=== PATIENT | female | born 1985 | race Caucasian/White ===

== ENCOUNTER → 2017-12-24 15:27 | Outpatient (CLI) | payer BC, SELFPAY ==
[2017-12-24 18:34] LABS: Thyroid Stim Hormone (TSH) 2.07 uIU/mL (0.358-3.74)
[2017-12-26 13:25] LABS: Hep B Surface Antibodies Reactive (.)
== END ==
PROVIDERS: Family Provider Family Medicine; PCP Family Medicine; Visit Provider Family Medicine
DX: R00.2 Palpitations (principal); Z92.29 Personal history of other drug therapy
CPT/HCPCS: 36415; 84439; 84443; 86706

== ENCOUNTER → 2018-01-31 12:39 | Outpatient (CLI) | payer BC, SELFPAY ==
--- NOTE | 2018-01-31 12:42 | ECHOD_ITS ---
Reason For Study: Palpitations Procedure This was a 2D Doppler, Color Flow transthoracic echocardiogram. Exam performed in department. Left Ventricle Normal size and thickness. The estimated ejection fraction is 65 %. Normal diastology for age. No regional wall motion abnormalities noted. Right Ventricle Normal size and thickness. Normal systolic function. Atria Normal left atrium. Normal right atrium. Normal atrial septum. Mitral Valve The mitral valve is structurally normal. No prolapse or stenosis seen. Tricuspid Valve Normal tricuspid valve. Trivial tricuspid valve insufficiency. Right ventricular systolic pressure estimated to be 24 mmHg. Aortic Valve Normal aortic valve. Trisinus/trileaflet aortic valve. Pulmonic Valve Normal pulmonic valve. Great Vessels Normal aortic root. Normal arch. Normal inferior vena cava. Inferior vena cava collapse with sniff. Pericardium/Pleural No pericardial effusion. MMode/2D Measurements & Calculations LVIDd: 5.1 cm IVSd: 0.84 cm Ao root diam: 2.9 cm LVIDs: 3.5 cm LVPWd: 0.82 cm LA dimension: 3.9 cm RVDd: 3.7 cm FS: 31.6 % LAV(MOD-bp): 48.1 ml LA A4 area: 16.0 cm2 RA A4 area: 12.3 cm2 LAV(MOD-bp) Indexed: 23.1 ml/m2 LAV(MOD-sp2): 53.8 ml LAV(MOD-sp4): 40.4 ml Doppler Measurements & Calculations MV E max mahesh: 88.8 cm/sec Lat Peak E' Mahesh: 10.9 cm/sec Med Peak E' Mahesh: 7.2 cm/sec MV A max mahesh: 58.2 cm/sec E/E' lat: 8.1 E/E' med: 12.3 MV E/A: 1.5 Ao V2 max: 126.1 cm/sec LV V1 max: 109.4 cm/sec PA V2 max: 92.6 cm/sec Ao max P.4 mmHg LV V1 max P.8 mmHg Ao V2 mean: 93.3 cm/sec Ao mean P.8 mmHg Ao V2 VTI: 32.3 cm TR max mahesh: 219.4 cm/sec TR max P.3 mmHg Interpretation Summary The estimated ejection fraction is 65 %. Normal diastology for age. Trivial tricuspid valve insufficiency. Right ventricular systolic pressure estimated to be 24 mmHg. There is no comparison study available. Ordering Physician: Carroll French Referring Physician: Javier Taylor MD Performed By: Jeanine Anderson RDCS, RVT
== END ==
PROVIDERS: Family Provider Family Medicine; PCP Family Medicine; Visit Provider Internal Medicine Cardiovascular Disease
DX: R00.2 Palpitations (principal); E66.9 Obesity, unspecified
CPT/HCPCS: 93306

== ENCOUNTER → 2018-03-24 17:39 | Outpatient (CLI) | payer BC, SELFPAY | PROVIDERS: Family Provider Family Medicine; Visit Provider Family Medicine | DX: L02.91 Cutaneous abscess, unspecified (principal) | CPT/HCPCS: 87070; 87205 ==

== ENCOUNTER → 2020-10-05 11:30 | Outpatient (REF) | payer BC, SELFPAY | LOC: LABSPEC 11:30 | PROVIDERS: PCP Family Medicine; Visit Provider Family Medicine | DX: Z03.818 Encounter for observation for suspected exposure to other biological agents ruled out (principal) | CPT/HCPCS: 87635; U0003 ==

== ENCOUNTER 2022-02-08 08:33 | Day surgery (SDC) | payer BC, SELFPAY ==
--- NOTE | 2022-01-30 16:38 | PCM.HP.BLA ---
History and Physical Date of Admission: 02/08/22 Pre-Op History and Physical ? HPI: The patient is a 36 year old female presenting for AUB, heavy menses. Pt saw EMERGENCY SERVICES DISPATCHER previously who worked her up- had ultrasound which shows likely EM polyp. Pt reports does not currently use BC and interested in IUD for heavy menses and contraception. ? pre-operative visit. She is scheduled for Hysteroscopy D&C and Polypectomy with IUD insertion Mirena , for AUB, Endometrial polyp, contraception mgmt on 02/08/22. Procedure discussed along with risks, benefits and complications. Other alternatives discussed for management. Consent form signed? Yes. ? ? PAST MEDICAL HISTORY PAST MEDICAL HISTORY Diagnosis Date ? NEGATIVE MEDICAL HISTORY ? ? ? PAST SURGICAL HISTORY PAST SURGICAL HISTORY Procedure Laterality Date ? TONSILLECTOMY & ADENOIDECTOMY <AGE 13 ? CURRENT MEDICATIONS No current outpatient medications on file. ? No current facility-administered medications for this visit. ? ? ALLERGIES: Patient has no known allergies. ? PERSONAL HISTORY: SOCIAL HISTORY Social History ? Tobacco Use ? Smoking status: Current Every Day Smoker ? ? Packs/day: 0.50 ? ? Years: 18.00 ? ? Pack years: 9.00 ? ? Types: Cigarettes ? Smokeless tobacco: Never Used Vaping Use ? Vaping Use: Never used Substance Use Topics ? Alcohol use: Yes ? Drug use: Never ? FAMILY HISTORY: FAMILY HISTORY FAMILY HISTORY Problem Relation Age of Onset ? Breast Cancer Mother 47 ? Alcohol abuse Father ? ? Breast Cancer Maternal Grandmother ? ? ? REVIEW OF SYMPTOMS: negative except as noted above PHYSICAL EXAMINATION: ? VITALS: Blood pressure 144/86, weight 245 lb (111.1 kg), last menstrual period 01/21/2022. ? GENERAL: The patient is well nourished, well hydrated in no acute distress. , The patient is oriented to time, place, and person. NECK: full range of motion LUNGS: Clear to auscultation bilaterally. no wheezes, rhonchi or rales HEART: Regular rate and rhythm, Normal heart sounds and No murmurs or gallops GENITALIA: deferred ? IMPRESSION: 36yo with AUB, Endometrial polyp. Contraception mgmt ? PLAN: Hysteroscopy, D&C, polypectomy, Mirena IUD insertion ? Pt has been counseled on risks/benefits and alternatives of surgery including but not limited to anesthesia, bleeding, infection, uterine perforation with subsequent injury to pelvic structures including bowel, bladder, ureters and vessels. Pt wishes to proceed with surgery at this time. ? Mirena IUD to come from Office ? COVID VACCINATED- no need for testing pre op ? PRE AND POST op instructions reviewed. ? I have reviewed and updated past medical and surgical history, medications and allergies Vernell Leyva MD ?4:38 PM
--- NOTE | 2022-02-08 | EMB_PTH ---
PATIENT: GARRY FLORES LOC: [facility] [place] U#:[id number] AGE/SX: 36/F ROOM: RE02/08/[address]: Dr. Vernell Beth, MDDOB: 1985 BED: DIS: 02/08/2022 SPEC #: [id number] RECD: 02/08/22 10:43 STATUS: HENRIK PARDO #: [id number] RELL: 02/08/22 00:[address]: Vernell Beth DEPT: SURGICAL PATHOLOGY RECD BY: Sadia Vazquez ENTERED: 02/08/22 11:34 SP TYPE: ENDOM BX/C HOPE DR: Dr. Javier Taylor MD Tissues: Endometrium, NOS Procedures: Surgery Specimen Level IV HEADER OPERATION: Hysteroscopy, dilation and curettage, endometrial polypectomy PRE-OP DIAGNOSIS: Abnormal uterine bleeding, endometrial polyp, contraception management TISSUE SUBMITTED: Endometrial polyp and endometrial curettings MICROSCOPIC DIAGNOSIS Endometrial polyp and endometrial curettings: Secretory endometrium. Fragments of myometrium. MARION:niurka 02/09/2022 MICROSCOPIC DESCRIPTION Slides are reviewed. GROSS DESCRIPTION Received in fixative is one container labeled with the patient's name and designated endometrial polyp and endometrial curettings. The specimen consists of multiple irregular fragments of coello soft tissue mixed with hemorrhagic soft tissue that in aggregate measure 5 x 3 x 0.3 cm. The specimen is totally submitted in two cassettes. / MARION:niurka 02/08/2022 TC:4 CPT: 06268
[2022-02-08 09:06] VITALS: BP 150/79; PULSE 97; RESP 18; TEMP 35.7; O2SAT 98; BMI 41.0
--- NOTE | 2022-02-08 09:09 | PCM.DC ---
Discharge Instructions Diet Discharge Diet: No restrictions Activity May resume sexual activity in: 1 week Dressing / Incision Call your doctor if you observe: Fever of 101 or Higher, Inability to urinate, Using more than 1 pad per hour and Uncontrolled pain Follow Up Care Please Follow Up With: Vernell Beth MD When: 1-2 weeks post OP if you need an appointment please call [phone] Test Results: Test results from this visit will be discussed in further detail at your follow-up appointment, if applicable. Discharge Plan Admission Attending Provider: Vernell Beth Primary Care Provider: Javier Taylor Discharge Orders/Prescriptions Prescriptions: No Action melatonin 3 mg Tablet 3 mg PO QHS RF: 0 cholecalciferol (vitamin D3) [Vitamin D3] 25 mcg (1,000 unit) Tablet 25 mcg PO DAILY RF: 0
--- NOTE | 2022-02-08 09:09 | PCM.OPRPT ---
Problems Associated Problem List Diagnoses (1) Abnormal uterine bleeding (AUB): (2) Endometrial polyp: (3) Contraception management: Report of Operation Date of Procedure: 02/08/22 Pre-Operative Diagnosis: aub, endometrial polyp, contraceptive mgmt Post-Operative Diagnosis: same Surgery/Procedure Performed:: Hysteroscopy, D&C, Polypectomy, Mirena IUD Insertion Description of Surgical Findings:: Endometrial polyp noted- removed with symphion resection device. IUD placed w/o difficulty. Surgeon: Vernell Beth Type of Anesthesia: MAC Specimen's removed: Endometrial curettings, endometrial polyp Estimated Blood Loss (mL): 5 Fluids Replaced: 700 Description of Procedure: Informed consent was obtained the patient was taken the operating room she was placed in supine position. She was given anesthesia. She was then placed in the [facility] where she was prepped and draped in the normal sterile fashion. At this time the weighted speculum was placed in the posterior fornix of vagina. Single-tooth tenaculum was used to gently grasp the anterior lip the cervix. At this time the uterine cavity was sounded to approximately 9cm. Gentle dilatation was performed once adequate dilatation of the cervix was achieved the hysteroscope using normal saline as a distention medium was placed. Endometrial polyp noted with thick endometrial tissue.. Symphion resecting device used to obtain endometrial curettings and to perform polypectomy. Tissue will be sent to pathology for evaluation. MIRENA IUD opened and inserted without difficulty. IUD strings cut to 2.5cm from cervical OS. Tenaculum removed. Good hemostasis. Instrument, lap count correct x 2. Vaginal Sweep was negative. fluid deficit 850cc Grafts/Implants Used: Mirena IUD Procedure Start Time: 10:04 Procedure Stop Time: 10:15 Complications none Admit VTE Documentation VTE Present on Admission: Yes VTE Mechan Device Prophylaxis: SCD's VTE Pharm Prophylaxis ordered?: No Reason prophylaxis not ordered:: Procedure Not Indicated
[2022-02-08] MEDS: Lactated Ringers 1,000 ML 15 ML IV (09:11)
[2022-02-08 09:27] LABS: Hemoglobin 12.5 g/dL (12.0-15.0); Mean Corp Hgb Conc 32.9 g/dL (32-36); Mean Corpuscular Hgb 29.3 pg (27.0-32.0); Platelet Count 278 K/mm3 (150-450); RBC Distribution Width CV 14.1 % (11.6-14.6); RBC Distribution Width SD 44.6 fl (35.1-43.9); Red Blood Count 4.27 M/mm3 (4.2-5.4); White Blood Count 12.1 K/mm3 (4.4-11.0)
[2022-02-08 09:44] LABS: Internal QC Validated? YES +Cl - CLEAR BKGD; Pregnancy, Serum, hCG Quali. NEGATIVE Negative
[2022-02-08 10:25] VITALS: BP 121/70; BP 150/79; PULSE 88; RESP 16; TEMP 36.1; O2SAT 94
[2022-02-08 10:30] VITALS: BP 122/80; BP 150/79; PULSE 79; RESP 16; O2SAT 94
[2022-02-08 10:35] VITALS: BP 122/86; BP 150/79; PULSE 75; RESP 16; O2SAT 97
[2022-02-08 10:40] VITALS: BP 121/73; BP 150/79; PULSE 69; RESP 16; TEMP 36.2; O2SAT 98
[2022-02-08 11:01] VITALS: BP 150/79
== END 2022-02-08 23:59 | disposition home or self-care (01) ==
LOC: SDC 08:51 → AC 08:52
PROVIDERS: Anesthesiology; PCP Family Medicine; Visit Provider Obstetrics & Gynecology
PROC: 0UB98ZZ Excision of Uterus, Via Natural or Artificial Opening Endoscopic (ICD-10-PCS; CPT 58558; principal; 2022-02-08 09:55)
DX: N84.0 Polyp of corpus uteri (principal); Z68.41 Body mass index [BMI] 40.0-44.9, adult; F17.210 Nicotine dependence, cigarettes, uncomplicated; Z30.430 Encounter for insertion of intrauterine contraceptive device; E66.9 Obesity, unspecified; N93.9 Abnormal uterine and vaginal bleeding, unspecified
CPT/HCPCS: 58558; 58300; 00952; 84703; 85027; 88305; J7120; J2405

== ENCOUNTER → 2022-12-24 | Outpatient (CLI) | payer BC, SELFPAY ==
--- NOTE | 2022-12-24 08:51 | RAD_ITS ---
STUDY: X-RAY - RIGHT FOOT CLINICAL: Female, 37 years old. pain TECHNIQUE: 3 view(s) of the foot. COMPARISON: None. FINDINGS: Normal talus and tarsal bones. Calcaneal spurs Normal visualized subtalar, talonavicular, calcaneocuboid, tarsal and tarsometatarsal articulations. Normal metatarsi. Normal metatarsophalangeal joint of the great toe. Normal tibial and fibular sesamoid bones. Normal interphalangeal joint of the great toe. Normal phalanges of the great toe. Normal second through fifth metatarsophalangeal joints. Normal interphalangeal joints and phalanges of the lesser toes. The soft tissue structures are unremarkable. RAD/Foot min 3 Views IMPRESSION: Calcaneal spurs, no demonstrated fracture or suspicious osseous lesion Electronically Signed: Chandan Saldaña MD at 16:48 EST ,
== END | disposition home or self-care (01) ==
LOC: MTRAD 08:45
PROVIDERS: PCP Family Medicine; Referring Provider Nurse Practitioner Family; Visit Provider Nurse Practitioner Family
DX: M79.671 Pain in right foot (principal)
CPT/HCPCS: 73630

== ENCOUNTER → 2023-07-11 | Outpatient (CLI) | payer OTHER, SELFPAY ==
--- NOTE | 2023-07-11 14:01 | RAD_ITS ---
STUDY: X-RAY - CERVICAL SPINE REASON FOR EXAM: Female, 37 years old. C3-4 L sided neck pain for one month period TECHNIQUE: 5 view(s) of the cervical spine were obtained. COMPARISON: None FINDINGS: Normal anterior atlantoaxial articulation. Normal odontoid process. Normal cervical lordosis. Normal vertebral bodies and endplates. Normal disc space heights. Normal visualized intervertebral neuroforamina. The soft tissue structures are normal. RAD/Cerv Spine 4 or 5 Views IMPRESSION: Normal x-ray examination of the visualized cervical spine. Electronically Signed: Williams Canales MD at 10:59 EDT ,
== END | disposition home or self-care (01) ==
PROVIDERS: PCP Family Medicine; Referring Provider Family Medicine; Visit Provider Family Medicine
DX: M54.2 Cervicalgia (principal)
CPT/HCPCS: 72050

== ENCOUNTER 2023-12-25 06:58 | Emergency (ER) | payer OTHER, SELFPAY ==
[2023-12-25 07:00] VITALS: BP 162/101; PULSE 80; RESP 16; TEMP 36.7; O2SAT 97; BMI 44.1
--- NOTE | 2023-12-25 07:12 | EX.ED.DYSGE1 ---
HPI History of Present Illness Chief Complaint: Back Informant: patient Narrative Narrative: Patient presents with pain in her back that is starting to wrap around to the front of the abdomen. Patient states that about 2 AM this started. It was in the medial aspect of both scapula. She said it was clearly on both sides. It radiated a little bit down her back but is now coming around the lower portion of the rib cage to the front. She states it comes in waves. It is not bad now. When the pain is bad she got nauseated once and vomited once. But she is not at all short of breath she is not syncopal or near syncopal. She is not coughing. Moving twisting breathing does not bother it. Nothing seems to make it better or worse. She does feel little bit more pain in the right flank area but not notably more there. No prior abdominal surgeries. She has a history of borderline hypertension but is never been placed on meds for this. No family history of heart disease. She does have some obesity and vapes but no cigarettes. No recent travel surgery or immobilization personal family history of DVT or PE. No history of early gallbladder problems run in the family. [facility] Medical History Alcohol use Anxiety Back pain Former smoker Gastric reflux GERD (gastroesophageal reflux disease) High cholesterol History of echocardiogram History of stress test HLD (hyperlipidemia) HTN (hypertension) Migraines Nicotine dependence in remission Obesity Smoker Wears glasses Home Medications cholecalciferol (vitamin D3) 25 mcg (1,000 unit) tablet (Vitamin D3) 25 mcg PO DAILY 02/01/22 [History Last Taken Unknown] melatonin 3 mg tablet 3 mg PO QHS 02/01/22 [History Last Taken Unknown] Allergy/AdvReac Type Severity Reaction Status Date / Time No Known Allergies Allergy Verified 02/08/22 09:04 Family History Father Hypertension 54 etoh abuse Mother Breast cancer Surgical History cyst excision from breast H/O wisdom tooth extraction History of tonsillectomy and adenoidectomy Social History Smoking Status: Current every day smoker tobacco type: e-cigarettes alcohol intake: current alcohol intake frequency: a few times a month Alcohol type: beer caffeine: Yes Type: coffee Number of servings: 1 ROS ROS ED ROS Narrative A complete review of systems was performed and is negative except as documented in the history of present illness. Some specific details below. Constitutional: No recent fevers or chills. Has not felt ill recently. EYE: No visual complaints or pain. ENT: No difficulty swallowing. No swelling. No pain. There is a history of GERD but she is not having those feelings at this time. CV: No anterior chest pain or palpitations. Respiratory: No dyspnea. No hemoptysis. No difficulty taking breaths. GI: Nauseated and vomited once but not nauseated now. Pain is coming around to the front of her abdomen. Maybe a little bit more on the right than the left. : No frequency dysuria or hematuria. No history of kidney stones. Musculoskeletal: No recent trauma. No pains. No different activity pulling pushing or anything that she can think of to have initiated this pain. Skin: No rash. Nondiaphoretic. Neuro: No weakness or numbness. Endocrine: No polyuria or polydipsia. EXAM Physical Exam Narrative Exam Narrative: CONSTITUTIONAL: Patient is nontoxic in appearance. The patient looks comfortable. She is actually laughing when I walk in the room but the pain is better now. HEENT: No notable trauma. Mucous membranes moist. EYES: No conjunctival injection. No proptosis. CARDIOVASCULAR: Regular rate. Rate is about 75?85 on the monitor. No ectopy. Regular rhythm. No notable murmur. No JVD. Tones are not muffled. Peripheral pulses are normal x 4. RESPIRATORY: No respiratory distress. Breathing is unlabored. No wheezes. No rhonchi. No rales. No pain with a deep breath. Saturations normal at 97-98% on room air on the monitor showing no hypoxia. GASTROINTESTINAL: Not distended. Bowel sounds are normal. No tenderness. No guarding. No rebound. No palpable mass. No bruit. GENITOURINARY: No tenderness over the bladder. She did have mild right CVA tenderness. MUSCULOSKELETAL: Atraumatic. No peripheral edema. No cord. No tenderness along the deep venous system. No asymmetry. Her back shows no notable tenderness except as I get down lower on the right. No skin changes. NEUROLOGICAL: Patient is alert and appropriate. No focal deficit noted. SKIN: No noted rashes. No diaphoresis. PSYCHIATRIC: Patient is calm. Mood is appropriate. Const Vital Signs: 12/25/23 07:00 Temperature 98.0 F Temperature Source Temporal Pulse Rate 80 Respiratory Rate 16 Blood Pressure 162/101 H Blood Pressure Mean 121 Pulse Ox 97 Oxygen Delivery Method Room Air MDM MDM MDM Narrative Medical decision making narrative: Patient CBC shows no marked abnormalities. Patient's electrolytes show minimally low sodium at 135 but otherwise normal. Glucose is slightly up at 122 and this can be rechecked. Liver function test shows no marked abnormalities. Urinalysis is not a clean-catch but no other marked findings. Lipase is negative. Urine is negative. I rechecked the patient. She still having some pains off and on. But looks comfortable. Pains are still on the back and wrapping around. This a very atypical pain. I have no explanation for her symptoms of pain with nausea and vomiting. Her exam is unremarkable. She has excellent peripheral pulses. She is not hypoxic or pain with a deep breath. She is PERC negative. But with her atypical migrating pain we did do a CTA. My independent interpretation the patient's CTA of the chest abdomen pelvis shows no acute process. No pulmonary abnormality. Abdominal structures also look normal. No hydro. Final reading is pending. Final reading did not she any notable abnormality. Slight variation in diameter of the aorta but not technically aneurysm. There is some stones in the kidney but not ureter. Patient is feeling well. We will get her Toradol. Recommend Tylenol Motrin. Abdomen is still benign. Lab Data Attestation: I reviewed the patient's lab results. Labs: Laboratory Results - last 24 hr 12/25/23 12/25/23 07:25 07:30 WBC 9.5 RBC 4.66 Hgb 14.6 Hct 42.1 MCV 90.3 MCH 31.3 MCHC 34.7 RDW Std Deviation 38.5 RDW Coeff of Nickolas 11.8 Plt Count 282 MPV 9.9 Immature Gran % (Auto) 0.700 Neut % (Auto) 68.3 Lymph % (Auto) 19.5 Gallia % (Auto) 9.9 Eos % (Auto) 1.3 Baso % (Auto) 0.3 Absolute Neuts (auto) 6.5 Absolute Lymphs (auto) 1.85 Nucleated RBC % 0 Sodium 135 L Potassium 4.0 Chloride 105 Carbon Dioxide 27.0 Anion Gap 3 L BUN 15 Creatinine 0.72 Estim Creat Clear Calc 138.96 Est GFR (MDRD) Af Amer 117 Est GFR (MDRD) Non-Af 97 BUN/Creatinine Ratio 20.8 H Glucose 122 H Lactic Acid 1.1 Calcium 8.8 Total Bilirubin 1.00 AST 23 ALT 57 H Alkaline Phosphatase 65 Troponin I High Sens 3 Total Protein 6.9 Albumin 3.6 Globulin 3.3 Albumin/Globulin Ratio 1.1 Lipase 25 Serum , Qual NEGATIVE Urine Color Yellow Urine Clarity Sl. Cloudy Urine pH 6.5 Ur Specific [place] 1.015 Urine Protein 30 H Urine Glucose (UA) Normal Urine Ketones 5 H Urine Occult Blood 10 H Urine Nitrite Negative Urine Bilirubin Negative Urine Urobilinogen Normal Ur Leukocyte Esterase 25 H Urine RBC 0 SEEN Urine WBC 0-5 SEEN Ur Squamous Epith Cells 5-10 SEEN Amorphous Sediment 1+ Urine Bacteria 0 SEEN Urine Mucus 0 SEEN Radiography Diagnostic Testing: Clinical Impression(s) from Imaging Studies Chest/Abdomen/Pelvis CTA 12/25/23 08:30 IMPRESSION: 1. No CTA evidence of thoracic aortic aneurysm, abdominal aortic aneurysm or dissection. 2. No CTA evidence of pulmonary thromboemboli. 3. No acute cardiopulmonary pathology. 4. Moderate diffuse hepatic steatosis and hepatomegaly. 5. Abnormal intramural edema of the gastric antral wall causing luminal narrowing of the gastric antrum and the pylorus. Recommend EGD for further evaluation. 6. 2.5 cm nonenhancing hypodense cyst in the left posterior renal parenchyma is simple cyst. No follow-up is necessary. 7. 5 mm nonobstructing stone abutting the posterior wall of the left renal cyst. Electronically Signed: Jaret Hernandez MD at 9:55 EST , EKG Initial EKG: Comments: My independent interpretation of the patient's EKG shows normal sinus rhythm with slight sinus arrhythmia. Overall rate is normal at 72. Minimal nonspecific changes but no sign of acute infarct or ischemia. CA interval, QRS duration and QTc are normal. I was able to find a prior EKG from 18 August 2013. Although the copy is not perfect the EKGs are similar. Discharge Plan Triage Chief Complaint: Back ED Provider: Roman Salguero Dx/Rx/DC Orders Clinical Impression: Posterior chest pain Instructions: ED Back Spasm, No Trauma Prescriptions: No Action melatonin 3 mg Tablet 3 mg PO QHS cholecalciferol (vitamin D3) [Vitamin D3] 25 mcg (1,000 unit) Tablet 25 mcg PO DAILY Primary Care Provider: Javier Taylor Referrals: Javier Taylor MD [Primary Care Provider] - 1-2 Days if not improving Activity Restrictions/Additional Instructions: May use Tylenol or Motrin or Aleve for discomfort. Recommend ice versus heat. Disposition Disposition: Home, Self Care
--- OUTSIDE RECORDS SUMMARY | 2023-12-25 07:21 | XMS RPT_ITS | CCD ---
Author Name Unknown Address [address] [place] [address] Organization [facility] Care Team Providers Care Aerobics Instructor Name Role Phone Unavailable Primary Care Provider Unavailabl e VERNELL AGARWAL Attending Unavail KIRSTEN Shepard Referring Unavailable VERNELL AGARWAL Attending Unavail VERNELL Lowe Referring Unavail KIRSTEN Sheaprd Attending Unavailable Medications Completed/Discontinued Medications Medication Drug Class(es) Dates Sig (Normalized) Sig (Original) estradiol 1 mg oral tablet (2 sources) Estrogen Start: 08-08-2022 End: 12-20-2022 take 1 tablet by mouth once daily estradiol (ESTRACE) 1 mg tablet Take 1 tablet by mouth once daily for 10 days. 10 tablet 0 08/08/2022 12/20/2022 Discontinued Problems Problem Classification Problem Date Documented Da te Episodic/Chronic Contraceptive and procreative management (1 source) Intrauterine contraceptive device in situ; Translations: [Encounter for routine checking of intrauterine contraceptive device] Episodic Results Test Name Value Interpretation Reference Range Facil ity Vital Signs Date Time Vital Sign Value Performing Clinician Faci litotto 12-20-2022 14:54-0500 Body height 166.4 cm Kirsten Hilton APRN.CNP Work Phone: [facility] 12-20-2022 14:54-0500 Body weight 112.49 kg Kirsten Hilton APRN.CNP Work Phone: [facility] 12-20-2022 14:54-0500 Diastolic blood pressure 82 mm[Hg] Kirsten Hilton APRN.CNP Work Phone: [facility] 12-20-2022 14:54-0500 Systolic blood pressure 142 mm[Hg] Kirsten Hilton APRN.CNP Work Phone: [facility] Encounters Encounter Date Encounter Type Care Provider Facility Start: 12-20-2022 End: 12-20-2022 ambulatory KIRSTEN HILTON Facility:[facility] Start: 12-20-2022 End: 12-20-2022 Patient encounter procedure Kirsten Hilton APRN.CNP Work Phone: OB/Gynecology Plan of Treatment Date Care Activity Detail Author Start: 11-30-2026 HPV TESTING HPV TESTING [facility] Start: 11-30-2026 PAP TESTING PAP TESTING [facility] Start: 11-18-2022 DEPRESSION ASSESSMENT DEPRESSION ASS ESSMENT [facility] Start: 07-19-2022 Influenza vaccination INFLUENZA (#1) [facility] Start: 11-27-2021 COVID-19 VACCINE (4 - Booster for Pfizer series) COVID-19 VACCINE (4 - Booster for Pfizer series) [facility] Start: 07-19-2021 Influenza vaccination INFLUENZA (#1) [facility] Start: 2005 Urine microalbumin profile DTAP,TDAP,TD (1 - Tdap) [facility] Start: 2004 HEPATITIS C SCREENING HEPATITIS C SC REENING [facility] Start: 2004 HIV SCREENING HIV SCREENING [facility] Start: 1998 Adult depression screening assessment DEPRESSION SCREENING [facility] Start: 1992 PNEUMOCOCCAL (1 - PCV) PNEUMOCOCCAL (1 - PCV) [facility] Start: 1986 HEPATITIS B (1 of 3 - 3-dose series) HEPATITIS B (1 of 3 - 3-dose series) [facility] Payers Date Payer Category Payer Unknown [employer] PPO [id number] 2021-Present [phone] [address] [place] [address] PPO [id number] 2021 Unknown [employer] PPO [id number] 2021-Present [phone] [address] [place] [address] PPO [id number] 2021 Unknown [id number] Social History Date Type Detail Facility Start: 11-30-2021 [facility] History of tobacco use Cigarette Smoker [facility] Start: 11-30-2021 End: 12-20-2022 Cigarettes smoked current (pack per day) - Reported 0.5 [facility] Start: 11-30-2021 End: 12-20-2022 Tobacco use and exposure Smokeless tobacco non-user [facility] Start: 02-08-2022 End: 12-20-2022 Alcohol intake Current drinker of alcohol (finding) [facility] Start: 1986 Sex Assigned At Not on file [facility] Start: 12-20-2022 Tobacco smoking stat [facility] Occasional tobacco smoker [facility] Work Phone: Start: 12-20-2022 Alcohol Comment [facility] note 12-20-2022 Note Date & Type Note Facility 12-20-2022 Note HNO ID: [id number] Author: Kirsten Hilton APRN.EARLY CHILDHOOD EDUCATION WORKER Service: ? Author Type: Nurse Practitioner Type: Progress Notes Filed: 12/20/2022 3:41 PM Note Text: [employer] Gift Wrapping offered: Patient declinesArin Caruso is a 37 year old who presents for an annual gynecologic exam without complaints. Menses: cycles every 21 days and 7 days of light flow. Contraception: IUD Mirena 02/08/2022 HPV vaccine: No Last Pap: 12/06/2021 normal HPV: 12/04/2021 negative History of abnormal pap: No Last mammogram: never Sexually active: Yes History of STDS: None Patient concerns for STD exposure: No. Time with current partner: 14 years Pain with intercourse: No Postcoital bleeding: No OB History T0 L0 SAB0 IAB0 Ectopic0 Multiple0 Live Births0 [employer]ge[employer] History LMP: 01/21/2022, IUD Age at Menarche: Age at First : Age at Menopause: Squeegee Operator History Comments: Sexual Activity: Yes; Male Contraception: None PAST MEDICAL HISTORY Diagnosis Date NEGATIVE MEDICAL HISTORY PAST SURGICAL HISTORY Procedure Laterality Date HYSTEROSCOPY, DIAGNOSTIC (SEPARATE 02/08/2022 [facility] 02/08/2022 Mirena IUD Insertion TONSILLECTOMY AND ADENOIDECTOMY FAMILY HISTORY Problem Relation Age of Onset Breast Cancer Mother 47 Alcohol abuse Father Breast Cancer Maternal Grandmother SOCIAL HISTORY Social History Tobacco Use Smoking status: Every Day Packs/day: 0.50 Years: 18.00 Pack years: 9.00 Types: Cigarettes Smokeless tobacco: Never Vaping Use Vaping Use: Never used Substance Use Topics Alcohol use: Yes Drug use: Never REVIEW OF SYSTEMS Abdomen: No abdominal pain, nausea, vomiting, diarrhea, or constipation. No bloating, early satiety, indigestion, or increased flatulence. Bladder: No dysuria, gross hematuria, urinary frequency, urinary urgency, or incontinence. Breast: No breast lumps, nipple d/c, overlying skin changes, redness or skin retraction. Allergies and current medication updated:Yes EXAM: BP 142/82 Ht 5' 5.5 (1.66m) Wt 248 lb (112.5kg) LMP 12/03/2022 BMI 40.63 kg/(m2). GENERAL: pleasant, female in no apparent distress HEENT: Normocephalic, atraumatic, mucus membranes moist, and no lesions NECK: Supple, full range of motion, no adenopathy, and thyroid normal DERMATOLOGY: Normal, without lesions, non-icteric, and non-hirsute BREAST: soft, non-tender, symmetric, no dominant mass, normal nipple-areolar complex, no lymphadenopathy, and no nipple discharge CHEST: Normal inspiratory effort ABDOMEN: soft, non-tender, and no masses PELVIC: external genitalia normal, normal Bartholin's glands, urethra, [place] Park's glands, no vulvar lesions, no cervical lesions, good vaginal support, physiologic discharge present, normal appearing perineal body and perianal region. IUD strings visualized. BIMANUAL: uterus normal size, shape and consistency, no adnexal masses, and non-tender RECTOVAGINAL: deferred. NEURO: alert and oriented x3,exam grossly non-focal EXTREMITIES: normal ASSESSMENT/PLAN: 1) Health maintenance: Pap/HPV up to date. Mammogram starting age 40. Nutrition, exercise and routine health maintenance exams reviewed. Smoking cessation: Benefits of smoking cessation reviewed. Patient encouraged to avoid smoking. Is mostly socially smoking now. 2) Contraception: IUD. Contraceptive options reviewed and information provided. 3) STD screening: Declined STD check. 4) Follow up one year or sooner as needed Kirsten Hilton APRN.LAURA [facility] History of Present illness Narrative 12-20-2022 Kirsten Hilton APRN.EARLY CHILDHOOD EDUCATION WORKER - 12/20/2022 2:47 PM EST Note Date & Type Note Facility 12-20-2022 History of Presen t illness Narrative [employer] Gift Wrapping offered: Patient declines. Garry is a 37 year old who presents for an annual gynecologic exam without complaints. Menses: cycles every 21 days and 7 days of light flow. Contraception: IUD Mirena 02/08/2022 HPV vaccine: No Last Pap: 12/06/2021 normal HPV: 12/04/2021 negative History of abnormal pap: No Last mammogram: never Sexually active: Yes History of STDS: None Patient concerns for STD exposure: No. Time with current partner: 14 years Pain with intercourse: No Postcoital bleeding: No OB History T0 L0 SAB0 IAB0 Ectopic0 Multiple0 Live Births0 S[employer]gee Operator History LMP: 01/21/2022, IUD Age at Menarche: Age at First : Age at Menopause: Squeegee Operator History Comments: Sexual Activity: Yes; Male Contraception: None PAST MEDICAL HISTORY Diagnosis Date NEGATIVE MEDICAL HISTORY PAST SURGICAL HISTORY Procedure Laterality Date HYSTEROSCOPY, DIAGNOSTIC (SEPARATE 02/08/2022 Hysteroscopy, D&C, [facility] INSERTION OF IUD 02/08/2022 Mirena IUD Insertion TONSILLECTOMY & ADENOIDECTOMY <AGE 13 FAMILY HISTORY Problem Relation Age of Onset Breast Cancer Mother 47 Alcohol abuse Father Breast Cancer Maternal Grandmother SOCIAL HISTORY Social History Tobacco Use Smoking status: Every Day Packs/day: 0.50 Years: 18.00 Pack years: 9.00 Types: Cigarettes Smokeless tobacco: Never Vaping Use Vaping Use: Never used Substance Use Topics Alcohol use: Yes Drug use: Never REVIEW OF SYSTEMS Abdomen: No abdominal pain, nausea, vomiting, diarrhea, or constipation. No bloating, early satiety, indigestion, or increased flatulence. Bladder: No dysuria, gross hematuria, urinary frequency, urinary urgency, or incontinence. Breast: No breast lumps, nipple d/c, overlying skin changes, redness or skin retraction. Allergies and current medication updated:Yes EXAM: BP 142/82 Ht 5' 5.5 (1.66m) Wt 248 lb (112.5kg) LMP 12/03/2022 BMI 40.63 kg/(m^2). GENERAL: pleasant, female in no apparent distress HEENT: Normocephalic, atraumatic, mucus membranes moist, and no lesions NECK: Supple, full range of motion, no adenopathy, and thyroid normal DERMATOLOGY: Normal, without lesions, non-icteric, and non-hirsute BREAST: soft, non-tender, symmetric, no dominant mass, normal nipple-areolar complex, no lymphadenopathy, and no nipple discharge CHEST: Normal inspiratory effort ABDOMEN: soft, non-tender, and no masses PELVIC: external genitalia normal, normal Bartholin's glands, urethra, [place] Park's glands, no vulvar lesions, no cervical lesions, good vaginal support, physiologic discharge present, normal appearing perineal body and perianal region. IUD strings visualized. BIMANUAL: uterus normal size, shape and consistency, no adnexal masses, and non-tender RECTOVAGINAL: deferred. NEURO: alert and oriented x3,exam grossly non-focal EXTREMITIES: normal ASSESSMENT/PLAN: 1) Health maintenance: Pap/HPV up to date. Mammogram starting age 40. Nutrition, exercise and routine health maintenance exams reviewed. Smoking cessation: Benefits of smoking cessation reviewed. Patient encouraged to avoid smoking. Is mostly socially smoking now. 2) Contraception: IUD. Contraceptive options reviewed and information provided. 3) STD screening: Declined STD check. 4) Follow up one year or sooner as needed Kirsten Hilton APRN.LAURA documented in this encounter [facility] Note 08-08-2022 Telephone Encounter - Niki Posey RN - 08/08/2022 11:09 AM EDTTelephone Encounter - Vernell Leyva MD - 08/08/2022 10:14 AM EDT Note Date & Type Note Facility 08-08-2022 Miscellaneous Notes Formattin g of this note might be different from the original. Patient notified. Niki Posey RN Can take estrogen daily x 2 weeks to stabilize lining. Patient had Mirena IUD inserted on 01/30/22. Aware that she can have irregular spotting and bleeding. Has spotting multiple days throughout the month. In June she had spotting for 10 days, no bleeding for 9 days, and then she started spotting again. Ranges from bright red to brown. Checking her strings monthly. Going on vacation in 2 weeks. Would like to not have bleeding during this time. Niki Posey RN documented in this encounter [facility] Progress note 03-05-2022 Note Date & Type Note Facility 03-05-2022 Note HNO ID: [id number] Author: Vernell Leyva MD Service: ? Author Type: Physician Type: Progress Notes Filed: 03/05/2022 8:26 AM Note Text: Garry Tompkins presents today for IUD check. She had a Mirena placed on 02/08/22. She has had spotting since placement. States for 16 days after placement she had intermittent spotting that was consistent with her normal menstruations. She believes her LMP was around February 13 which was normal. States she has no pain, fevers, ERVIN, mood changes. Currently sexually active with no dyspareunia or bleeding. REVIEW OF SYSTEMS: GENERAL: No weight loss, malaise or fevers CARDIOVASCULAR: Negative for chest pain, leg swelling, hypertension, CHF or palpitations : No history of dysuria, frequency or incontinence BAG BAILER: Negative for abnormal vaginal bleeding, abnormal vaginal discharge ENDOCRINE: Negative for cold or heat intolerance, polyuria, polydipsia and goiter PHYSICAL EXAMINATION: BP 138/88 Wt 245 lb (111.1kg) LMP 01/21/2022 ABDOMEN:soft, non-tender, no masses, no hepatosplenomegaly and no lymphadenopathy EXTERNAL GENITALIA: Normal genitalia and Bartholins, Urethra, Sken'e normal CERVIX: smooth, no lesions. IUD strings visible. UTERUS: normal size, non-tender and freely mobile ADNEXA: negative for tenderness or masses IMPRESSION/PLAN: IUD correctly positioned. Patient counseled regarding monthly string check. Follow up for annual exam or sooner if needed. Benign pathology from [facility], hysteroscopy reviewed I spent a total of 20 minutes on the date of the service which included preparing to see the patient, [id number] patient care, completing clinical documentation, obtaining and/or reviewing separately obtained history, performing a medically appropriate examination and counseling and educating the patient/family/caregiver. Vernell Beth MD [facility] Note 02-12-2022 Telephone Encounter - Niki Posey RN - 02/12/2022 2:17 PM EDTTelephone Encounter - Vernell Leyva MD - 02/12/2022 1:59 PM EDT Note Date & Type Note Facility 02-12-2022 Miscellaneous Notes I apologized. Fixed Please change to IUD check, not post op for visit type. Thank you. Spoke with patient. Doing well. Mild cramping. Not enough that she needs to take anything for it. Still spotting. Mostly brown in color with a little red blood mixed in. Eating and drinking ok. Post Op scheduled. Niki Posey RN See how patient is feeling s/p hysteroscopy, D&C, polypectomy and IUD insertion. Notify her that pathology is benign. Should see her in office 4-6 weeks to check iud placement. Pleas assist in scheduling. documented in this encounter [facility] Evaluation note Note Date & Type Note Facility documented in this encounter [facility] Summary Purpose Family History No Family History Records Found Advance Directives No Advanced Directives Records Found Additional Source Comments Source Comments (unrecognize d section and content) In the event this informatio n is protected by the Federal Confidentiality of Alcohol and Drug Abuse Patient Records regulations: The Federal rules restrict any use of the information to criminally investigate or prosecute any alcohol or drug abuse patient.[facility] Foundation[facility] the event this information is protected by the Federal Confidentiality of Alcohol and Drug Abuse Patient Records regulations: The Federal rules restrict any use of the information to criminally investigate or prosecute any alcohol or drug abuse patient.[facility] Foundation[facility] the event this information is protected by the Federal Confidentiality of Alcohol and Drug Abuse Patient Records regulations: The Federal rules restrict any use of the information to criminally investigate or prosecute any alcohol or drug abuse patient.[facility] Reason for Visit (unrecogniz ed section and content) Reason Onset Date Comments irregular spotting 08/08/2022 Reason Comments [facility] INFORMATION SOURCE (unrecogn ized section and content) FOR RECORDS PERTAINING TO PATIENTS WHO ARE OR HAVE BEEN ENROLLED IN A CHEMICAL DEPENDENCY/SUBSTANCEABUSE PROGRAM, SOME INFORMATION MAY BE OMITTED. This clinical summary was aggregated from multiple sources. Caution should be exercised in using it in the provision of clinical care. This summary normalizes information from multiple sources, and as a consequence, information in this document may materially change the coding, format and clinical context of patient data. In addition, data may be omitted in some cases. CLINICAL DECISIONS SHOULD BE BASED ON THE PRIMARY CLINICAL RECORDS. [employer] [facility]. provides no warranty or guarantee of the accuracy or completeness of information in this document.
[2023-12-25 07:34] LABS: Absolute Lymphocyte Count 1.85 X10^3/uL (0.83-4.51); Absolute Neutrophil Count 6.5 X10^3/uL (2.0-7.7); Basophil# 0.03 X10^3/uL; Basophil% 0.3 % (0-1); Eosinophil# 0.12 X10^3/uL; Eosinophils% 1.3 % (0-5); Hematocrit 42.1 % (37-47); Hemoglobin 14.6 g/dL (12.0-15.0); Lymphocyte # 1.85 X10^3/ul (0.83-4.51); Lymphocyte % 19.5 % (19-41); Mean Corp Hgb Conc 34.7 g/dL (32-36); Mean Corpuscular Hgb 31.3 pg (27.0-32.0); Mean Corpuscular Volume 90.3 fL (81-99); Mean Platelet Vol. 9.9 fl (6.2-12.0); Monocyte# 0.94 X10^3/uL; Monocyte% 9.9 % (0-10); NRBC Flagged by Analyzer 0 % (0-5); Neutrophil # 6.48 X10^3/uL (2.7-7.7); Neutrophil % 68.3 % (47-70); Platelet Count 282 K/mm3 (150-450); RBC Distribution Width CV 11.8 % (11.6-14.6); RBC Distribution Width SD 38.5 fl (35.1-43.9); Red Blood Count 4.66 M/mm3 (4.2-5.4); White Blood Count 9.5 K/mm3 (4.4-11.0)
[2023-12-25 07:36] LABS: Bacteria 0 SEEN /hpf (None Seen); Mucous, Urine 0 SEEN /hpf (<or=2+); Red Blood Cells-Urine 0 SEEN /hpf (0-5)
[2023-12-25 07:41] LABS: Color, Urine Yellow (Yellow); Glucose, Dipstick Normal (Normal); Ketone-Dipstick 5 mg/dl (Negative); Leukocyte Esterase-Dipstick 25 /ul (Negative); Nitrite-Dipstick Negative (Negative); Occult Blood-Urine 10 /ul (Negative); Protein-Dipstick 30 mg/dl (Negative); Specific Gravity, Urine 1.015 (1.002-1.030); Urine Bilirubin Dipstick Negative (Negative); Urine Clarity Sl. Cloudy (Clear); Urine Urobilinogen Normal (Normal); Urine pH 6.5 (5.0 - 8.0)
[2023-12-25 07:48] LABS: Amorphous Sediment 1+; Squamous Epithelial Cells - UA 5-10 SEEN /hpf (5-10); White Blood Cells 0-5 SEEN /hpf (0-5)
--- NOTE | 2023-12-25 07:50 | RAD_ITS ---
INDICATION: chest pain EXAMINATION/TECHNIQUE: X-RAY - XR Chest 1 View COMPARISON: No relevant prior comparison study available FINDINGS: LINES/DEVICES: None. LUNGS: No consolidation, edema or effusion. No pneumothorax. MEDIASTINUM AND CARDIOVASCULAR STRUCTURES: Cardiac silhouette not enlarged. Central airways and mediastinal contour are unremarkable. BONES AND SOFT TISSUES: Unremarkable. RAD/Chest 1 View (Portable) IMPRESSION: No radiographic evidence of acute cardiopulmonary disease. Electronically Signed: Elvin Hayes MD at 10:25 EST ,
[2023-12-25 08:00] LABS: Internal QC Validated? YES +Cl - CLEAR BKGD; Pregnancy, Serum, hCG Quali. NEGATIVE Negative
[2023-12-25 08:13] LABS: ALB/GLOB Ratio 1.1 RATIO (0.9-2.4); AST(SGOT) 23 U/L (15-37); Alanine Aminotransfer ALT/SGPT 57 U/L (13-56); Albumin, Serum 3.6 g/dL (3.2-5.0); Alkaline Phosphatase 65 U/L (45-117); Anion Gap 3 (5-15); BUN 15 mg/dL (7-18); BUN/Creat Ratio 20.8 RATIO (10-20); Calcium,Total 8.8 mg/dL (8.5-10.1); Chloride 105 mmol/L (98-107); Creatinine, Serum 0.72 mg/dL (0.55-1.02); EST Glomerular Filtration Rate 97 mL/min (>60); Est Glom Filt Rate - Afr Amer 117 mL/min (>60); Estimated Creatinine Clearance 138.96 ml/min; Globulin 3.3 g/dL (2.2-4.2); Glucose 122 mg/dL (74-106); Lipase 25 U/L (13-75); Protein, Total 6.9 g/dL (6.4-8.2); Sodium Level 135 mmol/L (136-145); Troponin-I HS 3 pg/mL (3.0-54.0)
[2023-12-25 08:14] LABS: Lactic Acid 1.1 mmol/L (0.4-1.9)
--- NOTE | 2023-12-25 08:30 | CT_ITS ---
INDICATION: Sudden onset of mid back pain at 2:00 AM. EXAMINATION: CTA CHEST, ABDOMEN AND PELVIS WITH CONTRAST - TECHNIQUE: A CTA of the chest, abdomen, and pelvis is obtained with sagittal and coronal reconstructed MIP views. Three-dimensional surface rendered sequence of the thoracic and abdominal aorta was obtained. A radiation dose optimization technique was used for this scan. 100 mL of Isovue-370. Oral contrast: None. COMPARISON: None. FINDINGS: CT CHEST: THORACIC AORTA: Mild dilatation of the ascending aorta with a diameter of 3.1 cm versus 2.1 cm from the descending thoracic aorta. No aortic dissection. No calcified and noncalcified plaques. No suspicious abnormality of the aortic valve leaflets. PULMONARY ARTERIES: Normal. ABDOMINAL AORTA: No aneurysm or dissection. No significant atheromatous disease. The iliac arteries are unremarkable. CELIAC ARTERY, SMA, CJ, BILATERAL RENAL ARTERIES: No aneurysm or dissection. No calcified or noncalcified plaques. No vaso-occlusive disease. LUNGS: The lungs are well-expanded without acute or chronic changes. No effusions or pneumothorax. MEDIASTINUM: The thyroid gland is normal. No mediastinal or hilar adenopathy. HEART: Heart is normal size. No pericardial effusion. No CAD. CT ABDOMEN AND PELVIS: LIVER: Moderate diffuse fatty infiltration. Hepatomegaly measuring 23.4 cm long. GALLBLADDER: The CBD is normal. Normal gallbladder. SPLEEN: Normal. PANCREAS: No masses or inflammation. ADRENAL GLANDS: Normal. KIDNEYS AND URETERS: The kidneys both enhance appropriately. There are normal size and shape. 5 mm nonobstructing stone adjacent the posterior wall of the left renal cyst. 2.5 cm nonenhancing hypodense cyst in the left posterior renal parenchyma with CT number of 12.48 Hounsfield units. This is simple cyst. No suspicious mass in both kidneys. Normal ureters. STOMACH: Abnormal intramural edema of the gastric antral wall. This is causing luminal narrowing of the gastric pylorus. SMALL BOWEL: No abnormal distention of the small bowel. MESENTERY: No mesenteric inflammation. No ascites. COLON: No significant diverticulosis, masses or inflammation. The colon otherwise is normal. There is a large fatty ileocecal valve. APPENDIX: The appendix is visualized and normal. IVC: Normal. RETROPERITONEUM: No retroperitoneal lymphadenopathy. PELVIC STRUCTURES: Normal bladder. IUD device inside the uterus. No adnexal mass lesions. SOFT TISSUES ABDOMEN: The anterior abdominal wall is normal. SOFT TISSUE CHEST: The extrathoracic soft tissues are normal. BONES: No fractures or significant degenerative disease. No lytic or blastic lesions. CT/CTA Chst, Abd, Pel W and/or WO IMPRESSION: 1. No CTA evidence of thoracic aortic aneurysm, abdominal aortic aneurysm or dissection. 2. No CTA evidence of pulmonary thromboemboli. 3. No acute cardiopulmonary pathology. 4. Moderate diffuse hepatic steatosis and hepatomegaly. 5. Abnormal intramural edema of the gastric antral wall causing luminal narrowing of the gastric antrum and the pylorus. Recommend EGD for further evaluation. 6. 2.5 cm nonenhancing hypodense cyst in the left posterior renal parenchyma is simple cyst. No follow-up is necessary. 7. 5 mm nonobstructing stone abutting the posterior wall of the left renal cyst. Electronically Signed: Jaret Hernandez MD at 9:55 EST ,
[2023-12-25] MEDS: Ketorolac 15 MG/ML Vial IV (10:47)
[2023-12-25 10:52] VITALS: BP 138/96; PULSE 81; RESP 16; O2SAT 96
== END 2023-12-25 10:53 | disposition home or self-care (01) ==
PROVIDERS: Emergency Provider Emergency Medicine; PCP Family Medicine; Visit Provider Emergency Medicine
DX: R07.9 Chest pain, unspecified (principal); E66.9 Obesity, unspecified; I10 Essential (primary) hypertension; F17.290 Nicotine dependence, other tobacco product, uncomplicated; E78.00 Pure hypercholesterolemia, unspecified
CPT/HCPCS: 71045; 71275; 74174; 80053; 81001; 83605; 83690; 84484; 84703; 85025; 93005; 96374; 99283; Q9967; A4216

== ENCOUNTER → 2024-01-23 | Outpatient (CLI) | payer OTHER, SELFPAY ==
--- OUTSIDE RECORDS SUMMARY | 2024-01-23 13:22 | XMS RPT_ITS | CCD ---
Author Name Unknown Address [address] [place] [address] Organization [facility] Care Team Providers Care Special Needs Librarian Name Role Phone Unavailable Primary Care Provider Unavailabl e VERNELL AGARWAL Attending Unavail KIRSTEN Shepard Referring Unavailable VERNELL AGARWAL Attending Unavail VERNELL Lowe Referring Unavail KIRSTEN Shepard Attending Unavailable Medications Completed/Discontinued Medications Medication Drug [...] 166.4 cm Kirsten Hilton APRN.CNP Work Phone: [facility] 12-20-2022 14:54-0500 Body weight 112.49 kg Kirsten Hilton APRN.CNP Work Phone: [facility] 12-20-2022 14:54-0500 Diastolic blood pressure 82 mm[Hg] Kirsten Hilton APRN.CNP Work Phone: [facility] 12-20-2022 14:54-0500 Systolic blood pressure 142 mm[Hg] Kirsten Hilton APRN.CNP Work Phone: [facility] Encounters Encounter Date Encounter Type Care Provider Facility Start: 12-20-2022 End: 12-20-2022 ambulatory KIRSTEN HILTON Facility:[facility] Start: 12-20-2022 End: 12-20-2022 Patient encounter procedure Kirsten Hilton APRN.CNP Work Phone: OB/Gynecology Plan of Treatment Date Care Activity Detail Author Start: 11-30-2026 HPV TESTING HPV TESTING [facility] Start: 11-30-2026 PAP TESTING PAP TESTING [facility] Start: 11-18-2022 DEPRESSION ASSESSMENT DEPRESSION ASS ESSMENT [facility] Start: 07-19-2022 Influenza vaccination INFLUENZA (#1) [facility] Start: 11-27-2021 COVID-19 VACCINE (4 - Booster for Pfizer series) COVID-19 VACCINE (4 - Booster for Pfizer series) [facility] Start: 07-19-2021 Influenza vaccination INFLUENZA (#1) [facility] Start: 2005 Urine microalbumin profile DTAP,TDAP,TD (1 - Tdap) [facility] Start: 2004 HEPATITIS C SCREENING HEPATITIS C SC REENING [facility] Start: 2004 HIV SCREENING HIV SCREENING [facility] Start: 1998 Adult depression screening assessment DEPRESSION SCREENING [facility] Start: 1992 PNEUMOCOCCAL (1 - PCV) PNEUMOCOCCAL (1 - PCV) [facility] Start: 1986 HEPATITIS B (1 of 3 - 3-dose series) HEPATITIS B (1 of 3 - 3-dose series) [facility] Payers Date Payer Category Payer Unknown [employer] PPO [id number] 2021-Present [phone] [address] [place] [address] PPO [id number] 2021 Unknown [employer] PPO [id number] 2021-Present [phone] [address] [place] [address] PPO [id number] 2021 Unknown [id number] Social History Date Type Detail Facility [facility]: [facility] History of tobacco use Cigarette Smoker [facility] Start: 11-30-2021 End: 12-20-2022 Cigarettes smoked current (pack per day) - Reported 0.5 [facility] Start: 11-30-2021 End: 12-20-2022 Tobacco use and exposure Smokeless tobacco non-user [facility] Start: 02-08-2022 End: 12-20-2022 Alcohol intake Current drinker of alcohol (finding) [facility] Start: 1985 Sex Assigned At Not on file [facility] Start: 12-20-2022 Tobacco smoking stat [facility] Occasional tobacco smoker [facility] Work Phone: Start: 12-20-2022 [facility] note 12-20-2022 Note Date & Type Note Facility 12-20-2022 Note HNO ID: [id number] Author: Kirsten Hilton APRN.DOWEL PIN WORKER Service: ? Author Type: Nurse Practitioner Type: Progress Notes Filed: 12/20/2022 3:41 PM Note Text: Subsurface Augmentee Elint Operator offered: Patient declinesArin Caruso is a 37 [...] L0 SAB0 IAB0 Ectopic0 Multiple0 Live Births0 Anesthesia Resident History LMP: 01/21/2022, IUD Age at Menarche: Age at First : Age at Menopause: Anesthesia Resident History Comments: Sexual Activity: Yes; Male Contraception: None PAST MEDICAL HISTORY Diagnosis Date NEGATIVE MEDICAL HISTORY PAST SURGICAL HISTORY Procedure Laterality Date HYSTEROSCOPY, DIAGNOSTIC (SEPARATE 02/08/2022 [facility] IUD 02/08/2022 Mirena [...] external genitalia normal, normal Bartholin's glands, urethra, Perth's glands, no vulvar lesions, no cervical lesions, [...] or sooner as needed Kirsten Hilton APRN.LAURA [facility] History of Present illness Narrative 12-20-2022 Kirsten Hilton APRN.DOWEL PIN WORKER - 12/20/2022 2:47 PM EST Note Date & Type Note Facility 12-20-2022 History of Presen t illness Narrative Subsurface Augmentee Elint Operator offered: Patient declines. Garry is a 37 [...] L0 SAB0 IAB0 Ectopic0 Multiple0 Live Births0 Anesthesia Resident History LMP: 01/21/2022, IUD Age at Menarche: Age at First : Age at Menopause: Anesthesia Resident History Comments: Sexual Activity: Yes; Male Contraception: None PAST MEDICAL HISTORY Diagnosis Date NEGATIVE MEDICAL HISTORY PAST SURGICAL HISTORY Procedure Laterality Date HYSTEROSCOPY, DIAGNOSTIC (SEPARATE 02/08/2022 Hysteroscopy, D&C, [facility] INSERTION OF IUD 02/08/2022 Mirena [...] external genitalia normal, normal Bartholin's glands, urethra, Perth's glands, no vulvar lesions, no cervical lesions, [...] Kirsten Hilton APRN.LAURA documented in this encounter [facility] Note 08-08-2022 Telephone Encounter - Niki Posey [...] Niki Posey RN documented in this encounter [facility] Progress note 03-05-2022 Note Date & Type Note Facility 03-05-2022 Note HNO ID: [id number] Author: Vernell Leyva MD Service: ? 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 Benign pathology from [facility], hysteroscopy reviewed I spent a total of 20 minutes on the date of the service which included preparing to see the patient, [id number] patient care, completing clinical documentation, obtaining and/or reviewing separately obtained history, performing a medically appropriate examination and counseling and educating the patient/family/caregiver. Vernell Beth MD [facility] Note 02-12-2022 Telephone Encounter - Niki Posey [...] assist in scheduling. documented in this encounter [facility] Evaluation note Note Date & Type Note Facility documented in this encounter [facility] Summary Purpose Family History No Family History [...] or prosecute any alcohol or drug abuse patient.[facility] the event this information is protected by the Federal Confidentiality of Alcohol and Drug Abuse Patient Records regulations: The Federal rules restrict any use of the information to criminally investigate or prosecute any alcohol or drug abuse patient.[facility]In the event this information is protected by the Federal Confidentiality of Alcohol and Drug Abuse Patient Records regulations: The Federal rules restrict any use of the information to criminally investigate or prosecute any alcohol or drug abuse patient.[facility] Reason for Visit (unrecogniz ed section and [...] BE BASED ON THE PRIMARY CLINICAL RECORDS. [employer] [facility]. provides no warranty or guarantee of the accuracy or completeness of information in this document.
[2024-01-23 15:33] LABS: Absolute Lymphocyte Count 2.91 X10^3/uL (0.83-4.51); Absolute Neutrophil Count 5.9 X10^3/uL (2.0-7.7); Basophil# 0.03 X10^3/uL; Basophil% 0.3 % (0-1); Eosinophil# 0.13 X10^3/uL; Eosinophils% 1.3 % (0-5); Hematocrit 42.7 % (37-47); Lymphocyte # 2.91 X10^3/ul (0.83-4.51); Lymphocyte % 30.1 % (19-41); Mean Corp Hgb Conc 35.1 g/dL (32-36); Mean Platelet Vol. 10.5 fl (6.2-12.0); Monocyte# 0.66 X10^3/uL; Monocyte% 6.8 % (0-10); NRBC Flagged by Analyzer 0 % (0-5); Neutrophil # 5.86 X10^3/uL (2.7-7.7); Neutrophil % 60.7 % (47-70); Platelet Count 277 K/mm3 (150-450); RBC Distribution Width CV 11.7 % (11.6-14.6); RBC Distribution Width SD 38.7 fl (35.1-43.9); Red Blood Count 4.69 M/mm3 (4.2-5.4); White Blood Count 9.7 K/mm3 (4.4-11.0)
[2024-01-23 15:53] LABS: ALB/GLOB Ratio 1.2 RATIO (0.9-2.4); AST(SGOT) 30 U/L (15-37); Alanine Aminotransfer ALT/SGPT 63 U/L (13-56); Albumin, Serum 3.8 g/dL (3.2-5.0); Alkaline Phosphatase 61 U/L (45-117); Anion Gap 11 (5-15); BUN 9 mg/dL (7-18); BUN/Creat Ratio 13.3 RATIO (10-20); Calcium,Total 9.4 mg/dL (8.5-10.1); Chloride 103 mmol/L (98-107); Cholesterol 246 mg/dL (200); Creatinine, Serum 0.68 mg/dL (0.55-1.02); EST Glomerular Filtration Rate 104 mL/min (>60); Est Glom Filt Rate - Afr Amer 125 mL/min (>60); Globulin 3.2 g/dL (2.2-4.2); Glucose 91 mg/dL (74-106); High Density Lipoprotein 41 mg/dL; Potassium 3.9 mmol/L (3.5-5.1); Sodium Level 139 mmol/L (136-145); Triglycerides 309 mg/dL; Very Low Density Lipoprotein 62 mg/dL (5-40)
[2024-01-23 16:29] LABS: Hepatitis C Antibody Non-Reactive (Nonreactive)
== END | disposition home or self-care (01) ==
LOC: MFPLAB 12:36
PROVIDERS: PCP Family Medicine; Visit Provider Family Medicine
DX: R10.9 Unspecified abdominal pain (principal); E78.1 Pure hyperglyceridemia
CPT/HCPCS: 36415; 80053; 80061; 85025; 86803

== ENCOUNTER → 2024-12-23 | Outpatient (CLI) | payer BC, SELFPAY ==
--- NOTE | 2024-12-23 16:25 | RAD_ITS ---
PROCEDURE: ACUTE ABDOMEN INC CHEST REASON FOR EXAM: Abdominal pain TECHNIQUE: Supine and upright view(s) of the abdomen, as well as an AP view of the chest COMPARISON: None. FINDINGS: No focal consolidation, pleural effusion or pneumothorax. Cardiomediastinal silhouette is unremarkable. Nonobstructive bowel gas pattern. No evidence of free air. The osseous structures are grossly unremarkable. RAD/Acute Abdomen Inc Chest IMPRESSION: No focal consolidation. Nonobstructive bowel gas pattern. Reading Location: [facility]
[2024-12-23 17:51] LABS: Hemoglobin 15.5 g/dL (12.0-15.0); Mean Corp Hgb Conc 34.4 g/dL (32-36); Mean Corpuscular Hgb 31.6 pg (27.0-32.0); Mean Corpuscular Volume 91.6 fL (81-99); Mean Platelet Vol. 10.2 fl (6.2-12.0); Platelet Count 311 K/mm3 (150-450); RBC Distribution Width CV 11.7 % (11.6-14.6); Red Blood Count 4.91 M/mm3 (4.2-5.4); White Blood Count 13.8 K/mm3 (4.4-11.0)
[2024-12-23 18:11] LABS: ALB/GLOB Ratio 1.1 RATIO (0.9-2.4); AST(SGOT) 20 U/L (15-37); Alanine Aminotransfer ALT/SGPT 43 U/L (13-56); Alkaline Phosphatase 64 U/L (45-117); Anion Gap 10 (5-15); BUN 15 mg/dL (7-18); BUN/Creat Ratio 20.9 RATIO (10-20); Calcium,Total 9.4 mg/dL (8.5-10.1); Chloride 101 mmol/L (98-107); Creatinine, Serum 0.72 mg/dL (0.55-1.02); EST Glomerular Filtration Rate 97 mL/min (>60); Est Glom Filt Rate - Afr Amer 117 mL/min (>60); Globulin 3.7 g/dL (2.2-4.2); Glucose 82 mg/dL (74-106); Potassium 3.7 mmol/L (3.5-5.1); Protein, Total 7.7 g/dL (6.4-8.2); Sodium Level 136 mmol/L (136-145)
== END | disposition home or self-care (01) ==
LOC: MTLAB 16:21
PROVIDERS: PCP Family Medicine
DX: R10.9 Unspecified abdominal pain (principal)
CPT/HCPCS: 36415; 74022; 80053; 85027

== ENCOUNTER → 2025-01-21 | Outpatient (CLI) | payer BC, SELFPAY ==
--- NOTE | 2025-01-21 15:05 | CT_ITS ---
PROCEDURE: ABDOMEN/PELVIS WITH CONTRAST REASON FOR EXAM: Left-sided abdominal pain. TECHNIQUE: Abdomen and pelvis CT with intravenous contrast. Oral contrast was also used. IV CONTRAST: 100 cc of Isovue-300. COMPARISON: None. FINDINGS: Lung bases: Clear Liver: Diffuse fatty infiltration. Gallbladder: Unremarkable. Spleen: Unremarkable. Pancreas: Unremarkable. Adrenals: Unremarkable. Kidneys: 1.6 cm cyst in the mid lateral aspect of the left kidney. Bladder: Unremarkable. Reproductive Organs: IUD is seen within the uterus. Bowel: Unremarkable. Appendix: Normal. Lymph nodes: No suspicious lymph node enlargement. Vasculature: Major vascular structures are unremarkable. Peritoneum / Retroperitoneum: No ascites. No free air. Bones: Unremarkable. CT/Abdomen/Pelvis WITH Contrast IMPRESSION: Diffuse fatty infiltration of the liver. Small left renal cyst. IUD is seen within the uterus. One or more dose reduction techniques were used (e.g., Automated exposure contr ol, adjustment of the mA and/or kV according to patient size, use of iterative reconstruction technique). Reading Location: [id number]
== END | disposition home or self-care (01) ==
PROVIDERS: PCP Family Medicine
DX: R10.9 Unspecified abdominal pain (principal)
CPT/HCPCS: 74177; Q9967

== ENCOUNTER → 2025-01-25 | Outpatient (CLI) | payer BC, SELFPAY ==
[2025-01-25 11:15] LABS: Absolute Lymphocyte Count 3.16 X10^3/uL (0.83-4.51); Absolute Neutrophil Count 7.3 X10^3/uL (2.0-7.7); Basophil# 0.06 X10^3/uL; Basophil% 0.5 % (0-1); Eosinophil# 0.15 X10^3/uL; Eosinophils% 1.3 % (0-5); Hemoglobin 15.2 g/dL (12.0-15.0); Lymphocyte # 3.16 X10^3/ul (0.83-4.51); Lymphocyte % 27.4 % (19-41); Mean Corp Hgb Conc 34.5 g/dL (32-36); Mean Corpuscular Hgb 31.7 pg (27.0-32.0); Mean Corpuscular Volume 91.9 fL (81-99); Mean Platelet Vol. 10.5 fl (6.2-12.0); Monocyte# 0.74 X10^3/uL; Monocyte% 6.4 % (0-10); NRBC Flagged by Analyzer 0 % (0-5); Neutrophil # 7.33 X10^3/uL (2.7-7.7); Neutrophil % 63.6 % (47-70); Platelet Count 318 K/mm3 (150-450); RBC Distribution Width CV 11.8 % (11.6-14.6); RBC Distribution Width SD 39.5 fl (35.1-43.9); Red Blood Count 4.79 M/mm3 (4.2-5.4); White Blood Count 11.5 K/mm3 (4.4-11.0)
[2025-01-25 14:23] LABS: ALB/GLOB Ratio 1.6 RATIO (0.9-2.4); AST(SGOT) 16 U/L (<=31); Alanine Aminotransfer ALT/SGPT 22 U/L (<=34); Albumin, Serum 4.3 g/dL (3.5-5.0); Alkaline Phosphatase 58 U/L (35-104); Anion Gap 14 (5-15); BUN 12 mg/dL (4-19); BUN/Creat Ratio 17.2 RATIO (10-20); Calcium,Total 9.9 mg/dL (7.6-11.0); Carbon Dioxide 22.1 mmol/L (21.0-32.0); Chloride 101 mmol/L (98-108); Creatinine, Serum 0.69 mg/dL (0.70-1.20); EST Glomerular Filtration Rate 114 (>60); Globulin 2.7 g/dL (2.2-4.2); Glucose 93 mg/dL (70-99); Potassium 4.5 mmol/L (3.3-5.1); Sodium Level 137 mmol/L (133-145); Total Bilirubin 0.52 mg/dL (0.00-1.30)
[2025-01-25 19:36] LABS: Cholesterol 246 mg/dL (<=200); High Density Lipoprotein 43 mg/dL; Low Density Lipoprotein Calc. 151 mg/dL; Triglycerides 257 mg/dL; Very Low Density Lipoprotein 51 mg/dL (5-40); cholesterol:hdl ratio screen 5.68
== END | disposition home or self-care (01) ==
LOC: MFPLAB 09:35
PROVIDERS: PCP Family Medicine; Visit Provider Family Medicine
DX: Z13.220 Encounter for screening for lipoid disorders (principal); K76.0 Fatty (change of) liver, not elsewhere classified
CPT/HCPCS: 36415; 80053; 80061; 84443; 85025

== ENCOUNTER → 2025-01-29 | Outpatient (CLI) | payer BC, SELFPAY ==
--- NOTE | 2025-01-29 07:22 | BI_ITS ---
PROCEDURE: SCRN MAMM (CAD)W/SARAH BILAT REASON FOR EXAM: F, Age 39 y/o, presents for annual screening mammogram. Family history of breast cancer in her mother at age 47 and maternal grandmother. TECHNIQUE: Bilateral screening digital breast tomosynthesis with 2D and 3D images. Computer aided detection. COMPARISON: Baseline examination, no priors. FINDINGS: There are scattered areas of fibroglandular density. There are multiple bilateral circumscribed masses, which is typically a benign pattern. However, the mass in the upper slightly inner right breast at middle depth is much larger than the other visualized masses. No suspicious masses, areas of developing architectural distortion, or suspicious calcifications in the left breast. BI/SCRN MAMM (CAD)W/SARAH BILAT IMPRESSION: Mass in the upper slightly inner right breast at middle depth requires further evaluation. Recommend diagnostic ultrasound of the right breast. BI-RADS 0: INCOMPLETE - NEED ADDITIONAL IMAGING EVALUATION. Follow-up code: Additional Views obtained/call backs The patient will be notified of the results by letter. Reading Location: [id number]
== END | disposition home or self-care (01) ==
LOC: OPBI 07:21
PROVIDERS: PCP Family Medicine; Referring Provider Family Medicine; Visit Provider Family Medicine
DX: Z12.31 Encounter for screening mammogram for malignant neoplasm of breast (principal); Z80.3 Family history of malignant neoplasm of breast
CPT/HCPCS: 77063; 77067

== ENCOUNTER → 2025-02-03 | Outpatient (CLI) | payer BC, SELFPAY ==
--- NOTE | 2025-02-03 08:49 | US_ITS ---
PROCEDURE: BREAST LIMITED UNILATERAL REASON FOR EXAM: 39-year-old female recalled from screening for a right breast mass visualized on the examination of 01/29/2025. Family history of breast cancer in her mother at age 47 and a maternal grandmother. COMPARISON: 01/29/2025 TECHNIQUE: Targeted right breast ultrasound. FINDINGS: RIGHT: Ultrasound targeted to the upper inner at the right breast. There is an oval circumscribed mass in the right breast at 1 o'clock 9 cm from the nipple measuring 1.5 x 0.9 x 1.3 cm. There is mild internal vascular flow. This likely represents a fibroadenoma. This is an appropriate correlates with the mammographic finding. US/Breast Limited Unilateral IMPRESSION: Right breast mass at 1 o'clock 9 cm from the nipple is probably benign. Recomm end short interval six-month diagnostic ultrasound of the right breast for further evaluation. Diagnostic ultrasound of the right breast in 6-months BI-RADS 3: PROBABLY BENIGN. Reading Location: [id number]
== END | disposition home or self-care (01) ==
PROVIDERS: PCP Family Medicine; Referring Provider Family Medicine; Visit Provider Family Medicine
DX: N63.12 Unspecified lump in the right breast, upper inner quadrant (principal)
CPT/HCPCS: 76642

== ENCOUNTER → 2025-02-24 | Outpatient (CLI) | payer BC, SELFPAY ==
--- NOTE | 2025-02-24 07:35 | ECHOD_ITS ---
Reason For Study Reason For Study: THORACIC AORTIC ECSTASIA Procedure This was a 2D Doppler, Color Flow transthoracic echocardiogram. Exam performed in department. Left Ventricle Normal LV size. Left ventricular systolic function is normal. The left ventricular ejection fraction is 60 %. No regional wall motion abnormalities noted. Right Ventricle Normal RV size. Normal systolic function. Atria Normal left atrium. Normal right atrium. Mitral Valve Normal mitral valve. Tricuspid Valve Normal tricuspid valve. Aortic Valve Trisinus/trileaflet aortic valve. Pulmonic Valve Normal pulmonic valve. Great Vessels Normal aortic root. The pulmonary artery is normal size. Inferior vena cava collapse with respiration. Pericardium/Pleural No pericardial effusion. MMode/2D Measurements & Calculations LVIDd: 4.9 cm IVSd: 0.86 cm Ao root diam: 3.1 cm LVIDs: 3.3 cm LVPWd: 0.87 cm RVDd: 3.3 cm FS: 31.8 % LAV(MOD-bp): 45.9 ml LVAd ap4: 34.0 cm2 SV(MOD-sp4): 65.7 ml LAV(MOD-bp) Indexed: 20.7 ml/m2 LVLd ap4: 8.7 cm SI(MOD-sp4): 29.7 ml/m2 LAV(MOD-sp2): 40.3 ml EDV(MOD-sp4): 107.0 ml LAV(MOD-sp4): 48.5 ml EDV(sp4-el): 113.5 ml LVAs ap4: 18.7 cm2 LVLs ap4: 7.0 cm ESV(MOD-sp4): 41.3 ml ESV(sp4-el): 42.1 ml EF(MOD-sp4): 61.4 % EF(sp4-el): 62.9 % SV(sp4-el): 71.3 ml LA A4 area: 18.1 cm2 LA dimension(2D): 3.5 cm RA A4 area: 16.0 cm2 TAPSE: 2.0 cm Time Measurements MV dec time: 0.20 sec Doppler Measurements & Calculations MV E max mahesh: 82.0 cm/sec Lat Peak E' Mahesh: 13.4 cm/sec Med Peak E' Mahesh: 10.6 cm/sec MV A max mahesh: 75.6 cm/sec E/E' lat: 6.1 E/E' med: 7.7 MV E/A: 1.1 Ao V2 max: 121.3 cm/sec LV V1 max: 109.5 cm/sec PA V2 max: 86.1 cm/sec Ao max P.9 mmHg LV V1 max P.8 mmHg ECHO/Echo Complete Interpretation Summary Normal LV size. Left ventricular systolic function is normal. The left ventricular ejection fraction is 60 %. Structurally normal valves. Ordering Physician: Javier Taylor Referring Physician: Javier Taylor Performed By: Kimberley Sharp RDCS
== END | disposition home or self-care (01) ==
PROVIDERS: PCP Family Medicine; Referring Provider Family Medicine; Visit Provider Family Medicine
DX: I77.810 Thoracic aortic ectasia (principal)
CPT/HCPCS: 93306

== ENCOUNTER 2025-04-05 18:19 | Emergency (ER) | payer BC, SELFPAY ==
[2025-04-05 18:21] VITALS: BP 147/101; PULSE 93; RESP 16; TEMP 37; O2SAT 99; BMI 43.2
[2025-04-05 18:52] VITALS: BP 151/98
--- NOTE | 2025-04-05 18:54 | EX.ED.DYSGE1 ---
HPI History of Present Illness Chief Complaint: Hypertension Informant: patient and spouse/S.O. Onset/Context/Timing Onset: Today Current Severity: Mild Maximum Severity: Mild Narrative Narrative: 39-year-old female past medical history of kidney stones. Currently on metformin for weight management. No history of hypertension. No significant family history of hypertension both of her parents have already passed she is unsure if they are on medication or not. None of her siblings are treated for hypertension. This typically her blood pressure is not up. She checked it today send it was elevated at 180/150 at home she came in to be evaluated. Denies any headache or chest pain. No shortness of breath. No recent illness. Prior similar symptoms: No Recent Illness/Hospitalization: No PFSH PFSH Medical History GERD (gastroesophageal reflux disease) Former smoker Migraines Wears glasses Anxiety Alcohol use High cholesterol Back pain Gastric reflux Smoker History of echocardiogram History of stress test HTN (hypertension) HLD (hyperlipidemia) Nicotine dependence in remission Obesity Home Medications ?Medication ?Instructions ?Recorded ?Last Taken ?Type cholecalciferol (vitamin D3) 25 25 mcg PO DAILY 02/01/22 Unknown History mcg (1,000 unit) tablet (Vitamin D3) melatonin 3 mg tablet 3 mg PO QHS 02/01/22 Unknown History metformin 500 mg tablet,extended 1,000 mg PO BID 04/05/25 Unknown History release 24 hr vitamin E (dl, acetate) 180 mg 180 mg PO BID 04/05/25 Unknown History (400 unit) capsule Allergy/AdvReac Type Severity Reaction Status Date / Time No Known Allergies Allergy Verified 04/05/25 18:21 Family History Father Hypertension 54 etoh abuse Mother Breast cancer Surgical History History of tonsillectomy and adenoidectomy H/O wisdom tooth extraction cyst excision from breast Social History Smoking Status: Current every day smoker tobacco type: e-cigarettes alcohol intake: current alcohol intake frequency: a few times a month Alcohol type: beer caffeine: Yes Type: coffee Number of servings: 1 ROS ROS ED ROS Narrative Denies recent illness. Denies headache or chest pain. Denies any leg swelling. Constitutional Constitutional ED: Denies chills or fever(s) Eyes Eyes: Denies change in vision ENT ENT ED: Denies ear pain, rhinorrhea or sore throat Cardiovascular Cardiovascular: Denies chest pain, orthopnea, palpitations or racing heartbeat Respiratory/Chest Respiratory/Chest: Denies cough, dyspnea, dyspnea on exertion or orthopnea Gastrointestinal Gastrointestinal: Denies abdominal pain, constipation, diarrhea, melena, nausea or vomiting Genitourinary Genitourinary ED: Denies dysuria or hematuria Musculoskeletal Musculoskeletal: Denies arthralgias, back pain or myalgias Integumentary Denies abscess or Abrasions Neurologic Neurologic: Denies headache(s) Psychiatric Psychiatric: Denies anxiety or depression Endocrine Endocrinology: Denies cold intolerance, heat intolerance, polydipsia, polyphagia or polyuria Hematologic/Lymphatic Hematologic/Lymphatic: Reports none Allergic/Immunologic Allergic/Immunologic ED: Denies mouth swelling, tongue swelling or urticaria EXAM Physical Exam Narrative Exam Narrative: 39-year-old female sitting upright in bed. Vital signs are stable afebrile. Initial blood pressure 147/101. Repeat 151/98. She does not seem to have intact or any distress. No complaints. at bedside. H EENT exam pupils round reactive light. Mytrex membranes. No facial droop. Normal speech. Neck nontender no JVD. Lungs clear to auscultation bilaterally. Heart regular rhythm no murmur. Chest wall ribs nontender. Abdomen soft nontender. Back nontender. Moving all 4 extremities. 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 Dorsi plantarflexion intact. Calves are nontender without edema or cords. Neurologically she is awake and alert no focal motor deficits. Answering questions following commands. Benign exam. Const Vital Signs: 04/05/25 18:21 04/05/25 18:48 04/05/25 18:52 Temperature 98.6 F Temperature Source Oral Pulse Rate 93 Respiratory Rate 16 Respiratory Effort Normal Non-Labored Respiratory Pattern Normal Blood Pressure 147/101 H 151/98 H Blood Pressure Mean 116 115 Pulse Ox 99 Oxygen Delivery Method Room Air Positive well developed; Negative for cachectic, contractures or unkempt General Appearance ED: well developed and NAD; Negative for unkempt, cachectic, contractures, cyanotic, diaphoretic or pallor Nutritional Appearance: Negative for cachectic HEENT Reports moist mucous membranes Negative for trauma or tenderness Eyes PERRL and EOMs intact bilaterally General Eye ED: Negative for pale conjunctiva or scleral icterus Neck no lymphadenopathy, supple and no JVD General: Negative for tenderness Chest Wall inspection of chest normal Resp normal respiratory effort and clear to auscultation bilaterally Effort and Inspection: Negative for retractions Auscultation: Negative for rales, rhonchi, wheezes or diminished lung sounds Cardio regular rate, regular rhythm, S1 normal heart sound, S2 normal heart sound and no murmurs GI normal to inspection, nondistended, normoactive bowel sounds, non-tender, non-distended and no masses Palpation: soft; Negative for tender, guarding or rebound tenderness present Back/Spine no CVA tenderness General Back: Negative for CVA tenderness Cervical Spine: Negative for cervical spine tenderness Thoracic Spine / Upper Back: Negative for thoracic spinal tenderness or paraspinal muscle tenderness Lumbar Spine / Lower Back: Negative for lumbar spinal tenderness Extremity normal to inspection General Extremety ED: Negative for edema or tenderness General Extremity: Negative for edema Neuro oriented x3 and CN's II-XII intact bilaterally Sensorium / Orientation: alert; Negative for orientation impaired, lethargic or stuporous Motor Exam: strength 5/5 throughout Psych mental status grossly normal Appearance: Negative for unkempt Attitude: No agitated Mood & Affect: Negative for depressed, anxious or tearful Skin no rashes or lesions noted, no wounds and skin turgor normal General Skin Exam: elasticity normal; Negative for jaundice or pallor Lesions: No lesion noted Rashes: No rashes noted Trauma: Negative for abrasion Wounds: Negative for wounds noted MDM MDM MDM Narrative Medical decision making narrative: 39-year-old female elevated blood pressure with no prior history of hypertension. Exam benign. Prior screening labs on the computer showed normal kidney function. She and I and her discussed options. Show longer blood pressures twice daily over the next week she has appointment actually see her primary care physician's office tomorrow for follow-up. She will not be started on blood pressure medication today. History & Record Review Discussion w/independent historian: Patient and Family Additional record(s) reviewed:: Prior inpatient record, Prior outpatient record, Prior ED visit and Prior labs Discharge Plan Triage Chief Complaint: Hypertension ED Provider: Saad Landeros Dx/Rx/DC Orders Clinical Impression: Elevated blood pressure reading Instructions: ED Hypertension, To Be Confirmed Prescriptions: No Action melatonin 3 mg Tablet 3 mg PO QHS cholecalciferol (vitamin D3) [Vitamin D3] 25 mcg (1,000 unit) Tablet 25 mcg PO DAILY metformin 500 mg tablet extended release 24 hr 1,000 mg PO BID vitamin E (dl, acetate) 180 mg (400 unit) capsule 180 mg PO BID Primary Care Provider: Javier Taylor Referrals: Javier Taylor MD [Primary Care Provider] - Keep Toan appointment Activity Restrictions/Additional Instructions: Your exam is normal. Your blood pressure was elevated today. Follow-up with your primary care provider. I would log your blood pressures when you are calm and relaxed in the morning after breakfast and the same in the evening after dinner before bedtime. Twice a day. Recorded. Show at your primary care physician at the office in a week or so on they and you can determine if you need to be on blood pressure medication. Also consider things such as walking, exercise, reading and meditation to help lower your stress which may also bring your blood pressure down. Print Language: Croatian Disposition Disposition: Home, Self Care
--- NOTE | 2025-04-05 19:00 | EX.ED.DYSGE1 ---
HPI History of Present Illness Chief Complaint: Hypertension [facility] Medical History GERD (gastroesophageal reflux disease) Former smoker Migraines Wears glasses Anxiety Alcohol use High cholesterol Back pain Gastric reflux Smoker History of echocardiogram History of stress test HTN (hypertension) HLD (hyperlipidemia) Nicotine dependence in remission Obesity Home Medications ?Medication ?Instructions ?Recorded ?Last Taken ?Type cholecalciferol (vitamin D3) 25 25 mcg PO DAILY 02/01/22 Unknown History mcg (1,000 unit) tablet (Vitamin D3) melatonin 3 mg tablet 3 mg PO QHS 02/01/22 Unknown History metformin 500 mg tablet,extended 1,000 mg PO BID 04/05/25 Unknown History release 24 hr vitamin E (dl, acetate) 180 mg 180 mg PO BID 04/05/25 Unknown History (400 unit) capsule Allergy/AdvReac Type Severity Reaction Status Date / Time No Known Allergies Allergy Verified 04/05/25 18:21 Family History Father Hypertension 54 etoh abuse Mother Breast cancer Surgical History History of tonsillectomy and adenoidectomy H/O wisdom tooth extraction cyst excision from breast Social History Smoking Status: Current every day smoker tobacco type: e-cigarettes alcohol intake: current alcohol intake frequency: a few times a month Alcohol type: beer caffeine: Yes Type: coffee Number of servings: 1 EXAM Physical Exam Const Vital Signs: 04/05/25 18:21 04/05/25 18:48 04/05/25 18:52 Temperature 98.6 F Temperature Source Oral Pulse Rate 93 Respiratory Rate 16 Respiratory Effort Normal Non-Labored Respiratory Pattern Normal Blood Pressure 147/101 H 151/98 H Blood Pressure Mean 116 115 Pulse Ox 99 Oxygen Delivery Method Room Air MDM MDM MDM Narrative Medical decision making narrative: 39-year-old female no complaints with elevated blood pressure in the home. Exam benign. She has follow-up with her primary care physician tomorrow for further evaluation of they want to start on her blood pressure medication or wait and log it for the twice a day for the next week and determine if she needs to be started on medication. She has no prior history of hypertension. She had labs about a month and a half ago with a normal BUN and creatinine at that time. Discharge Plan Triage Chief Complaint: Hypertension ED Provider: Saad Landeros Dx/Rx/DC Orders Clinical Impression: Elevated blood pressure reading Instructions: ED Hypertension, To Be Confirmed Prescriptions: No Action melatonin 3 mg Tablet 3 mg PO QHS cholecalciferol (vitamin D3) [Vitamin D3] 25 mcg (1,000 unit) Tablet 25 mcg PO DAILY metformin 500 mg tablet extended release 24 hr 1,000 mg PO BID vitamin E (dl, acetate) 180 mg (400 unit) capsule 180 mg PO BID Primary Care Provider: Javier Taylor Referrals: Javier Taylor MD [Primary Care Provider] - Keep Toan appointment Activity Restrictions/Additional Instructions: Your exam is normal. Your blood pressure was elevated today. Follow-up with your primary care provider. I would log your blood pressures when you are calm and relaxed in the morning after breakfast and the same in the evening after dinner before bedtime. Twice a day. Recorded. Show at your primary care physician at the office in a week or so on they and you can determine if you need to be on blood pressure medication. Also consider things such as walking, exercise, reading and meditation to help lower your stress which may also bring your blood pressure down. Print Language: Pakistani Disposition Disposition: Home, Self Care Discharge Date/Time: 04/05/25 19:00
== END 2025-04-05 19:00 | disposition home or self-care (01) ==
LOC: ED 18:59
PROVIDERS: Emergency Provider Emergency Medicine; PCP Family Medicine; Visit Provider Emergency Medicine
DX: I10 Essential (primary) hypertension (principal); E78.00 Pure hypercholesterolemia, unspecified; F17.290 Nicotine dependence, other tobacco product, uncomplicated
CPT/HCPCS: 99282

== ENCOUNTER → 2025-04-06 | Outpatient (CLI) | payer BC, SELFPAY ==
[2025-04-06 15:40] LABS: Hematocrit 43.6 % (37-47); Mean Corp Hgb Conc 34.4 g/dL (32-36); Mean Corpuscular Hgb 31.8 pg (27.0-32.0); Mean Corpuscular Volume 92.4 fL (81-99); Mean Platelet Vol. 10.4 fl (6.2-12.0); Platelet Count 323 K/mm3 (150-450); RBC Distribution Width CV 11.7 % (11.6-14.6); RBC Distribution Width SD 39.1 fl (35.1-43.9); Red Blood Count 4.72 M/mm3 (4.2-5.4); White Blood Count 11.8 K/mm3 (4.4-11.0)
[2025-04-06 16:15] LABS: Anion Gap 15 (5-15); BUN 15 mg/dL (4-19); BUN/Creat Ratio 23.1 RATIO (10-20); CORTISOL AM 6.57 ug/dL (6.02-18.40); Calcium,Total 9.9 mg/dL (7.6-11.0); Carbon Dioxide 21.4 mmol/L (21.0-32.0); Chloride 101 mmol/L (98-108); Creatinine, Serum 0.63 mg/dL (0.70-1.20); EST Glomerular Filtration Rate 116 (>60); Glucose 80 mg/dL (70-99); Magnesium 1.9 mg/dL (1.5-2.2); Sodium Level 137 mmol/L (133-145)
== END | disposition home or self-care (01) ==
LOC: MFPLAB 11:12
PROVIDERS: Family Medicine; PCP Family Medicine; Referring Provider Family Medicine; Visit Provider Family Medicine
DX: R03.0 Elevated blood-pressure reading, without diagnosis of hypertension (principal)
CPT/HCPCS: 36415; 80048; 82533; 83735; 84443; 85027

== ENCOUNTER → 2025-08-02 | Outpatient (CLI) | payer BC, SELFPAY ==
[2025-08-02 10:19] LABS: Hematocrit 41.7 % (37-47); Hemoglobin 14.8 g/dL (12.0-15.0); Immature Granulocytes Count 0.070 X10^3/uL (0.0-0.0); Mean Corp Hgb Conc 35.5 g/dL (32-36); Mean Corpuscular Volume 90.3 fL (81-99); Mean Platelet Vol. 10.2 fl (6.2-12.0); NRBC Flagged by Analyzer 0 % (0-5); Platelet Count 328 K/mm3 (150-450); RBC Distribution Width CV 11.9 % (11.6-14.6); RBC Distribution Width SD 39.1 fl (35.1-43.9); Red Blood Count 4.62 M/mm3 (4.2-5.4); White Blood Count 9.2 K/mm3 (4.4-11.0)
[2025-08-02 10:54] LABS: AST(SGOT) 15 U/L (<=31); Alanine Aminotransfer ALT/SGPT 14 U/L (<=34); Albumin, Serum 4.1 g/dL (3.5-5.0); Alkaline Phosphatase 60 U/L (35-104); Anion Gap 13 (5-15); BUN 12 mg/dL (4-19); BUN/Creat Ratio 18.3 RATIO (10-20); Calcium,Total 9.6 mg/dL (7.6-11.0); Carbon Dioxide 22.1 mmol/L (21.0-32.0); Chloride 103 mmol/L (98-108); Cholesterol 212 mg/dL (<=200); Globulin 2.7 g/dL (2.2-4.2); Glucose 106 mg/dL (70-99); Low Density Lipoprotein Calc. 117 mg/dL; Potassium 3.4 mmol/L (3.3-5.1); Triglycerides 295 mg/dL; Very Low Density Lipoprotein 59 mg/dL (5-40); cholesterol:hdl ratio screen 5.87
[2025-08-03 04:07] LABS: PROGESTERONE 1.3 ng/mL (.)
[2025-08-04 14:08] LABS: Estrogen, Total, Serum 228 pg/mL (.)
== END | disposition home or self-care (01) ==
LOC: MFPLAB 08:30
PROVIDERS: PCP Family Medicine; Visit Provider Family Medicine
DX: K76.0 Fatty (change of) liver, not elsewhere classified (principal); E66.813 Obesity, class 3; Z68.41 Body mass index [BMI] 40.0-44.9, adult; R53.81 Other malaise
CPT/HCPCS: 36415; 80053; 80061; 82672; 83036; 84144; 84443; 85025